=== PATIENT | female | born 1970 | race Native Hawaiian/Other Pacific Islander ===

== ENCOUNTER 2017-07-27 11:04 | Outpatient (CLI) | payer OTHER | END 2017-07-27 21:10 | disposition home or self-care (01) | LOC: MAMMO 11:04 | DX: Z12.31 Encounter for screening mammogram for malignant neoplasm of breast (principal) ==

== ENCOUNTER 2019-07-31 09:00 | Outpatient (CLI) | payer OTHER | END 2019-07-31 23:27 | disposition home or self-care (01) | LOC: MAMMO 09:00 | DX: Z12.31 Encounter for screening mammogram for malignant neoplasm of breast (principal) ==

== ENCOUNTER 2020-08-03 09:13 | Outpatient (CLI) | payer OTHER | END 2020-08-03 20:26 | disposition home or self-care (01) | LOC: MAMMO 09:13 | DX: Z12.31 Encounter for screening mammogram for malignant neoplasm of breast (principal) ==

== ENCOUNTER 2021-10-13 14:24 | Outpatient (CLI) | payer OTHER | END 2021-10-13 20:03 | disposition home or self-care (01) | LOC: MAMMO 14:24 | PROVIDERS: ATTEND Internal Medicine | DX: Z12.31 Encounter for screening mammogram for malignant neoplasm of breast (principal) ==

== ENCOUNTER 2022-10-21 08:25 | Outpatient (CLI) | payer OTHER | END 2022-10-21 19:07 | disposition home or self-care (01) | LOC: MAMMO 08:25 | PROVIDERS: ATTEND Internal Medicine | DX: Z12.31 Encounter for screening mammogram for malignant neoplasm of breast (principal) ==